=== PATIENT | female | born 1940 | race Caucasian/White ===

== ENCOUNTER 2019-05-29 10:09 | Emergency (ER) | payer MEDICARE ==
[~2019-05-29] VITALS: Ht 157.5 cm; Wt 79.4 kg
[2019-05-29 10:15] VITALS: Ht 157.5 cm; Wt 79.4 kg
[2019-05-29] MEDS ORDERED: NORVASC2.5 MG PO (10:18)
[2019-05-29] MEDS ORDERED: BUPROPION XL300 MG PO (10:19)
[2019-05-29] MEDS ORDERED: CALCIUM 600 +1 EAC3 PO (10:19)
[2019-05-29] MEDS ORDERED: FENOFIBRATE160 MG PO (10:20)
[2019-05-29] MEDS ORDERED: COREG12.5 MG PO (10:20)
[2019-05-29] MEDS ORDERED: COLACE100 MG PO (10:20)
[2019-05-29] MEDS ORDERED: ATIVAN0.5 MG PO (10:21)
[2019-05-29] MEDS ORDERED: GLUCOTROL 5 MG T5 MG PO (10:21)
[2019-05-29] MEDS ORDERED: CLARITIN 10 MG10 MG PO (10:21)
[2019-05-29] MEDS ORDERED: MUPIROCIN22 GM TOPICAL (10:21)
[2019-05-29] MEDS ORDERED: NAPROXEN SODIU220 M1 PO (10:22)
[2019-05-29] MEDS ORDERED: ACCUPRIL20 MG PO (10:22)
[2019-05-29] MEDS ORDERED: TRAZODONE HCL150 MG PO (10:22)
[2019-05-29] MEDS ORDERED: EFFEXOR XR150 MG PO (10:23)
[2019-05-29 12:08] VITALS: BP 164/89
== END 2019-05-29 12:08 | disposition home or self-care (01) ==
LOC: D.ER 10:09
DX: S20.219A Contusion of unspecified front wall of thorax, initial encounter (principal); S80.12XA Contusion of left lower leg, initial encounter; S80.11XA Contusion of right lower leg, initial encounter; E11.9 Type 2 diabetes mellitus without complications; I10 Essential (primary) hypertension